=== PATIENT | male | born 1990 | race Caucasian/White ===

== ENCOUNTER 2023-12-18 10:09 | Emergency (ER) | payer MEDICAID, SELFPAY ==
[2023-12-18 10:14] VITALS: TEMP 36.7
[2023-12-18 10:23] VITALS: BP 150/98; PULSE 106; O2SAT 93
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
[2023-12-18 10:35] VITALS: RESP 25
[2023-12-18] MEDS: morphine 4 mg/mL SDV 1 mL IVP ×2 (10:35→10:54)
[2023-12-18] MEDS: tetanus-dipt-pertussis 0.5 mL SDV IM (10:35)
[2023-12-18] MEDS: ondansetron 2 mg/ML SDV 2 mL 4 MG IVP (10:35)
[2023-12-18] MEDS: LORazepam 2 mg/mL INJ 1 mL 1 MG IVP (10:53)
[2023-12-18 10:54] VITALS: RESP 25
[2023-12-18] MEDS: mupirocin oint 22 gm 1 APPLIC TOPICAL (11:21)
[2023-12-18 11:22] VITALS: RESP 23
[2023-12-18] MEDS: HYDROmorphone 1 mg/mL INJ 1 mL IVP (11:22)
[2023-12-18 11:33] VITALS: BP 129/82; PULSE 81; O2SAT 100
== END 2023-12-18 11:51 | disposition home or self-care (01) ==
PROVIDERS: Emergency Provider Physician Assistant
DX: T22.291A Burn of second degree of multiple sites of right shoulder and upper limb, except wrist and hand, initial encounter (principal); X08.8XXA Exposure to other specified smoke, fire and flames, initial encounter; Z23 Encounter for immunization
CPT/HCPCS: 90471; 90715; 96374; 96375; 99284; J1170; J2060; J2270; J2405

== ENCOUNTER 2024-03-10 01:11 | Emergency (ER) | payer MEDICAID, SELFPAY ==
[2024-03-10 01:12] VITALS: BP 119/62; PULSE 67; RESP 16; TEMP 36.6; O2SAT 95; BMI 29.5
--- NOTE | 2024-03-10 01:18 | ECG_ITS ---
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1990 Requested By: Hector Candelario Order Number: [id number] Reading MD: WENDY ARANA Measurements Intervals [place] Rate: 68 P: 41 OR: 158 QRS: 257 QRSD: 120 T: 61 QT: 418 QTc: 445 Interpretive Statements SINUS RHYTHM RIGHT AXIS DEVIATION [QRS AXIS > 100] RIGHT BUNDLE BRANCH BLOCK [120+ ms QRS DURATION, UPRIGHT V1, 40+ ms S IN I/aVL/V4/V5/V6] No previous ECG available for comparison Electronically Signed On 03-10-2024 18:55:05 BLEACHING MACHINE OPERATOR by WENDY ARANA [id number]
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
--- NOTE | 2024-03-10 01:23 | ED_ITS ---
HPI - Syncope 2 General: Chief Complaint: Syncope Stated Complaint: SYNCOPE Time Seen by Provider: 03/10/24 01:12 Source: patient and EMS Mode of arrival: EMS Limitations: no limitations History of Present Illness: 33-year-old male states that he has been drinking alcohol night states he had sat down to eat a sandwich states that while eating had some chest pain and had a syncopal event. He states that he feels improved currently denies any pain unknown for how long he had been out. He states he also had history of TIAs in the past but no focal deficits no slurred speech states that she has an MRI scheduled for Sunday. He states he is also currently wearing a heart monitor as he has had syncopal events in the past. Associated symptoms: Reports chest pain; Deny abdominal pain, fever(s), headache(s) or nausea Related Data Previous Rx's Medication Instructions Recorded hydrocodone 10 mg-acetaminophen 1 tab PO Q6H PRN pain #20 tabs 12/18/23 325 mg tablet Allergies Allergy/AdvReac Type Severity Reaction Status Date / Time No Known Allergies Allergy Verified 12/18/23 10:39 Review of Systems 2 Const: Denies: fever(s), chills, body aches or change in appetite ENMT: Denies: throat pain or dental pain Card: Reports: chest pain and syncope Resp: Denies: dyspnea GI: Denies: abdominal pain, nausea, vomiting or diarrhea Musc: Denies: neck pain or back pain Skin/Breast: Denies: rash Neuro: Denies: headache(s) Physical Exam 2 Const: COMMON NORMALS: no acute distress, patient oriented x3 and healthy appearing HENMT: COMMON NORMALS: normocephalic and atraumatic HEAD & SCALP: n ormocephalic and atraumatic Eye: COMMON NORMALS: conjunctivae normal CONJUNCTIVA: Yes conjunctivae normal Neck/C-Spine: COMMON NORMALS: full ROM and supple Chest: COMMONS NORMALS: normal inspection of the chest and normal palpation of entire chest wall Resp: COMMON NORMALS: normal respiratory effort, No retractions, No use of accessory muscles and clear to auscultation bilaterally AUSCULTATION: clear to auscultation bilaterally Cardio: COMMON NORMALS: regular rate, regular rhythm and No murmurs present (Cardio) RATE: regular rate RHYTHM: regular rhythm GI: COMMON NORMALS: Normal to inspection, nondistended, normoactive bowel sounds present, Soft to palpation, non-tender and no masses PALPATION: Yes Soft to palpation Extremity: COMMON NORMALS: normal to inspection and full ROM Neuro: COMMON NORMALS: patient oriented x3, moves all extremities and no focal motor deficits Psych: COMMON NORMALS: mental status grossly normal, Normal thought process present and cooperative THOUGHT PROCESS: Normal thought process present Skin: COMMON NORMALS: no rashes or lesions noted and no wounds GENERAL SKIN EXAM: no rashes or lesions noted Course 2 Vital Signs: Vital signs: Vital Signs Temperature 97.9 F 03/10/24 01:12 Pulse Rate 65 03/10/24 03:32 Respiratory Rate 16 03/10/24 03:32 Blood Pressure 112/78 03/10/24 03:32 Pulse Oximetry 91 03/10/24 03:32 Oxygen Delivery Me thod Room Air 03/10/24 01:12 MDM - Syncope Medical Decision Making Patient presents here after a syncopal event he has been well-appearing here head CT is normal troponins are negative he has no signs of any cardiac cause or stroke has been drinking alcohol as well could have contributed he is stable for discharge follow-up with PCP and return if worsening he understands agrees to plan. Medical Records I reviewed the patient's medical records. Lab Data I reviewed the patient's lab results. 03/10/24 01:53 03/10/24 01:53 Radiology Impressions Chest X-Ray 03/10/24 01:18 IMPRESSION: Enlarged cardiac silhouette. May reflect cardiomegaly and/or pericardial effusion. Head CT 03/10/24 01:18 IMPRESSION: No acute intracranial hemorrhage, evidence of acute territorial infarct, or mass effect. Laboratory Results WBC 7.31 10^3/uL (3.29-11.43) 03/10/24 01:53 RBC 4.87 10^6/uL (3.85-5.65) 03/10/24 01:53 Hgb 14.90 g/dL (11.27-16.99) 03/10/24 01:53 Hct 44.1 % (37-53) 03/10/24 01:53 MCV 90.6 fl (82-101) 03/10/24 01:53 MCH 30.6 pg (27-33) 03/10/24 01:53 MCHC 33.8 g/dL (30-55) 03/10/24 01:53 RDW 12.7 % (12.1-15.1) 03/10/24 01:53 Plt Count 280 10^3/cmm (157-399) 03/10/24 01:53 MPV 8.9 fL (7.4-10.4) 03/10/24 01:53 Neut % (Auto) 52.8 % 03/10/24 01:53 Lymph % (Auto) 33.9 % 03/10/24 01:53 Wood % (Auto) 7.0 % 03/10/24 01:53 Eos % (Auto) 5.1 % 03/10/24 01:53 Baso % (Auto) 1.1 % 03/10/24 01:53 Neut # (Auto) 3.86 10^3/uL (1.8-7.7) 03/10/24 01:53 Lymph # (Auto) 2.5 10^3/uL (0.8-4.8) 03/10/24 01:53 Wood # (Auto) 0.5 10^3/uL (0.2-0.9) 03/10/24 01:53 Eos # (Auto) 0.4 10^3/uL (0.0-0.8) 03/10/24 01:53 Baso # (Auto) 0.1 10^3/uL (0.0-0.1) 03/10/24 01:53 Nucleated RBC % (auto) 0 % 03/10/24 01:53 Nucleated RBCs # 0.0 /100WBC 03/10/24 01:53 D-Dimer 0.33 ug/mLFEU (0-0.59) 03/10/24 01:53 Sodium 139 mmol/L (136-145) 03/10/24 01:53 Potassium 3.8 mmol/L (3.5-5.1) 03/10/24 01:53 Chloride 100 mmol/L (98-107) 03/10/24 01:53 Carbon Dioxide 22 mmol/L (22-29) 03/10/24 01:53 Anion Gap 20.8 (5-19) H 03/10/24 01:53 BUN 12 mg/dL (6-20) 03/10/24 01:53 Creatinine 0.7 mg/dL (0.7-1.2) 03/10/24 01:53 GFR Calculation 130.7 mL/min (90-130) H 03/10/24 01:53 Glucose 96 mg/dL (65-115) 03/10/24 01:53 Calculated Osmolality 288 mOsm/kg (285-295) 03/10/24 01:53 Calcium 9.2 mg/dL (8.5-10.5) 03/10/24 01:53 Total Bilirubin 0.4 mg/dL (0.15-1.2) 03/10/24 01:53 AST 15 U/L (0-40) 03/10/24 01:53 ALT 12 U/L (0-41) 03/10/24 01:53 Alkaline Phosphatase 59 U/L (40-130) 03/10/24 01:53 Troponin T Baseline < 6 ng/L (0-15) 03/10/24 01:53 Troponin T 120 Minute 6.00 ng/L (0-15) 03/10/24 03:30 Delta Troponin T 0.13881 ABS# (0-10) 03/10/24 03:30 Total Protein 7.1 g/dL (6.6-8.7) 03/10/24 01:53 Albumin 4.6 g/dL (3.5-5.2) 03/10/24 01:53 Globulin 2.5 g/dL (1.3-4.6) 03/10/24 01:53 Ethyl Alcohol 119 mg/dL (0-10) H 03/10/24 01:53 All radiology interpretation(s) finalized by discharge EKG Data EKG 1: I personally reviewed and interpreted this EKG as follows: EKG interpretation date: 03/10/24 EKG interpretation time: 01:26 Interpretation: nsr hr [address] elevation qrs 120 qtc 435 EKG 2: I personally reviewed and interpreted this EKG as follows: EKG interpretation date: 03/10/24 EKG interpretation time: 03:20 Interpretation: [place]sr hr [address] elevation qrs 118 qtc 435 Discharge Plan Discharge Patient Disposition: Home Clinical Impression: Syncope Condition: Stable Prescriptions: No Action hydrocodone-acetaminophen 10-325 mg tablet 1 tab PO Q6H PRN (Reason: pain) Qty: 20 0RF Discharge Orders: Discharge ED (Routine); Ordered 03/10/24 Ordered By: Hector Candelario Discharge Diet: Advance as tolerated Discharge Activity: Resume usual activity Patient Instructions: Syncope (ED) Coding Level of Care Code ED Record Label Internship for Eunice Gallego
[2024-03-10 02:02] LABS: Basophils # 0.1 10^3/uL (0.0-0.1); Basophils % 1.1 %; Eosinophils # 0.4 10^3/uL (0.0-0.8); Eosinophils % 5.1 %; Hematocrit 44.1 % (37-53); Lymphocytes # 2.5 10^3/uL (0.8-4.8); Lymphocytes % 33.9 %; Mean Corpuscular HGB Conc 33.8 g/dL (30-55); Mean Corpuscular Hemoglobin 30.6 pg (27-33); Mean Corpuscular Volume 90.6 fl (82-101); Mean Platelet Volume 8.9 fL (7.4-10.4); Monocytes # 0.5 10^3/uL (0.2-0.9); Neutrophils # 3.86 10^3/uL (1.8-7.7); Neutrophils % 52.8 %; Nucleated Red Blood Cells % 0 %; Platelet Count 280 10^3/cmm (157-399); Red Blood Count 4.87 10^6/uL (3.85-5.65); Red Cell Distribution Width 12.7 % (12.1-15.1); White Blood Count 7.31 10^3/uL (3.29-11.43)
[2024-03-10 02:15] LABS: D Dimer 0.33 ug/mLFEU (0-0.59)
[2024-03-10 02:17] VITALS: BP 122/62; PULSE 71; RESP 25; O2SAT 94
[2024-03-10 02:22] LABS: Alanine Aminotransferase 12 U/L (0-41); Albumin Level 4.6 g/dL (3.5-5.2); Alcohol Level 119 mg/dL (0-10); Alkaline Phosphatase 59 U/L (40-130); Anion Gap 20.8 (5-19); Aspartate Amino Transferase 15 U/L (0-40); Blood Urea Nitrogen 12 mg/dL (6-20); Calcium 9.2 mg/dL (8.5-10.5); Carbon Dioxide 22 mmol/L (22-29); Chloride 100 mmol/L (98-107); Globulin 2.5 g/dL (1.3-4.6); Glomerular Filtration Rate 130.7 mL/min (90-130); Glucose 96 mg/dL (65-115); Osmolality Calculated 288 mOsm/kg (285-295); Potassium 3.8 mmol/L (3.5-5.1); Sodium 139 mmol/L (136-145); Total Bilirubin 0.4 mg/dL (0.15-1.2); Total Protein 7.1 g/dL (6.6-8.7); Troponin(5th) Baseline < 6 ng/L (0-15)
--- NOTE | 2024-03-10 03:18 | ECG_ITS ---
[facility]10 Pat Name: Walter Chinchilla Department: Room: Gender: Male Psychiatric Cns: : 1990 Requested By: Hector Candelario Order Number: [id number] Reading MD: WENDY ARANA Measurements Intervals [place] Rate: 74 P: 69 SC: 152 QRS: 259 QRSD: 118 T: 57 QT: 408 QTc: 453 Interpretive Statements SINUS RHYTHM POSSIBLE RIGHT VENTRICULAR HYPERTROPHY [SOME/ALL OF: PROMINENT R IN V1, LATE TRANSITION, RAD, MILI, SSS] Compared to ECG 03/10/2024 01:26:03 Right-axis deviation no longer present Right bundle-branch block no longer present Electronically Signed On 03-10-2024 19:30:01 DIESEL POWERPLANT SUPERVISOR by WENDY ARANA [id number]
[2024-03-10 03:32] VITALS: BP 112/78; PULSE 65; RESP 16; O2SAT 91
[2024-03-10 03:50] LABS: Troponin 5 2HR Delta 0.00001 ABS# (0-10)
[2024-03-10 04:16] VITALS: BP 98/69; PULSE 78; O2SAT 98
== END 2024-03-10 04:17 | disposition home or self-care (01) ==
PROVIDERS: Emergency Provider Emergency Medicine
DX: R55 Syncope and collapse (principal)
CPT/HCPCS: 36415; 70450; 71045; 80053; 80307; 84484; 85025; 85378; 93005; 99285

== ENCOUNTER 2024-06-19 12:50 | Outpatient (CLI) | payer MEDICAID, SELFPAY ==
[2024-06-19 13:06] LABS: Basophils # 0.1 10^3/uL (0.0-0.1); Basophils % 0.9 %; Eosinophils # 0.1 10^3/uL (0.0-0.8); Hematocrit 44.9 % (37-53); Lymphocytes # 1.6 10^3/uL (0.8-4.8); Lymphocytes % 22.4 %; Mean Corpuscular HGB Conc 33.4 g/dL (30-55); Mean Corpuscular Hemoglobin 30.1 pg (27-33); Mean Corpuscular Volume 90.2 fl (82-101); Mean Platelet Volume 9.2 fL (7.4-10.4); Monocytes # 0.3 10^3/uL (0.2-0.9); Monocytes % 4.3 %; Neutrophils # 4.86 10^3/uL (1.8-7.7); Neutrophils % 70.3 %; Nucleated Red Blood Cells % 0 %; Platelet Count 311 10^3/cmm (157-399); Red Blood Count 4.98 10^6/uL (3.85-5.65); Red Cell Distribution Width 12.7 % (12.1-15.1); White Blood Count 6.92 10^3/uL (3.29-11.43)
[2024-06-19 13:21] LABS: Anion Gap 12.3 (5-19); Blood Urea Nitrogen 16 mg/dL (6-20); Calcium 9.4 mg/dL (8.5-10.5); Carbon Dioxide 30 mmol/L (22-29); Chloride 102 mmol/L (98-107); Glucose 109 mg/dL (65-115); Osmolality Calculated 292 mOsm/kg (285-295); Potassium 4.3 mmol/L (3.5-5.1); Sodium 140 mmol/L (136-145)
== END 2024-06-19 12:51 | disposition home or self-care (01) ==
LOC: LAB 12:53
PROVIDERS: Visit Provider Internal Medicine
DX: Q21.10 Atrial septal defect, unspecified (principal); G45.9 Transient cerebral ischemic attack, unspecified
CPT/HCPCS: 36415; 80048; 85025

== ENCOUNTER 2024-07-02 17:21 | Emergency (ER) | payer MEDICAID, SELFPAY ==
[2024-07-02 17:27] VITALS: PULSE 83; RESP 16; TEMP 36.5; O2SAT 99; BMI 28.5
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
[2024-07-02 17:42] VITALS: BP 138/73; PULSE 85; O2SAT 98
[2024-07-02] MEDS: tetanus-dipt-pertussis 0.5 mL SDV IM (17:52)
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
[2024-07-02 18:31] LABS: Basophils # 0.1 10^3/uL (0.0-0.1); Basophils % 0.6 %; Eosinophils # 0.1 10^3/uL (0.0-0.8); Eosinophils % 0.8 %; Hematocrit 43.8 % (37-53); Lymphocytes # 1.8 10^3/uL (0.8-4.8); Lymphocytes % 17.2 %; Mean Corpuscular HGB Conc 33.8 g/dL (30-55); Mean Corpuscular Hemoglobin 29.8 pg (27-33); Mean Corpuscular Volume 88.1 fl (82-101); Mean Platelet Volume 9.4 fL (7.4-10.4); Monocytes # 0.7 10^3/uL (0.2-0.9); Monocytes % 6.4 %; Neutrophils # 7.97 10^3/uL (1.8-7.7); Neutrophils % 74.8 %; Nucleated Red Blood Cells % 0 %; Platelet Count 337 10^3/cmm (157-399); Red Blood Count 4.97 10^6/uL (3.85-5.65); Red Cell Distribution Width 12.9 % (12.1-15.1); White Blood Count 10.65 10^3/uL (3.29-11.43)
[2024-07-02 18:48] LABS: Alanine Aminotransferase 13 U/L (0-41); Alkaline Phosphatase 80 U/L (40-130); Anion Gap 22.9 (5-19); Aspartate Amino Transferase 23 U/L (0-40); Blood Urea Nitrogen 15 mg/dL (6-20); Calcium 9.8 mg/dL (8.5-10.5); Carbon Dioxide 20 mmol/L (22-29); Chloride 101 mmol/L (98-107); Creatinine Clr Calc Pharmacy 191.9983; Globulin 3.1 g/dL (1.3-4.6); Glomerular Filtration Rate 130.7 mL/min (90-130); Glucose 88 mg/dL (65-115); Osmolality Calculated 290 mOsm/kg (285-295); Potassium 3.9 mmol/L (3.5-5.1); Sodium 140 mmol/L (136-145); Total Bilirubin 1.1 mg/dL (0.15-1.2); Total Protein 8.1 g/dL (6.6-8.7)
[2024-07-02 18:53] VITALS: PULSE 87; O2SAT 96
[2024-07-02] MEDS: LORazepam 2 mg Tablet PO ×2 (19:19→21:02)
[2024-07-02 20:30] VITALS: BP 128/75; PULSE 79; O2SAT 94
[2024-07-02] MEDS: doxycycline 100 mg Tablet PO (20:49)
[2024-07-02 21:09] VITALS: BP 120/72; PULSE 87; O2SAT 96
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
== END 2024-07-02 21:11 | disposition home or self-care (01) ==
PROVIDERS: Emergency Provider Physician Assistant
DX: S91.311A Laceration without foreign body, right foot, initial encounter (principal); X58.XXXA Exposure to other specified factors, initial encounter; Z23 Encounter for immunization
CPT/HCPCS: 12002; 36415; 73630; 80053; 85025; 90471; 90715; 99284; E0114; J9999

== ENCOUNTER 2025-01-23 12:16 | Outpatient (CLI) | payer MEDICAID, SELFPAY ==
--- NOTE | 2025-01-23 12:22 | MR_ITS ---
WS: [id number] MRI RIGHT SHOULDER HISTORY: LIGAMENTOUS LAXITY OF R SHOULDER, history of prior labral surgery. COMPARISON: Radiograph 12/30/2024 TECHNIQUE: Multiplanar sequences of the shoulder joint are submitted. Mild AC joint arthritis. Osteophyte from the distal undersurface of the clavicle contacts the myotendinous portion of the supraspinatus. There is mild deformity of the supraspinatus tendon by the hypertrophic clavicular osteophyte. Minimal downsloping of the acromion and subacromial impingement. No significant amount of fluid in the subacromial bursa. Mild fluid distention of the subdeltoid bursa. No os acromion. Biceps tendon in the bicipital groove. Numerous micrometallic artifact scattered around the shoulder from prior surgery. No rotator cuff muscle atrophy or edema. No tendon tears are identified. Minimal tendinopathy in the distal subscapularis tendon. There is a small amount of tendinopathy in the supraspinatus tendon associated with the clavicular osteophyte encroachment. Marrow edema in the inferior glenoid with loss of the normal overlying cartilage and abnormal appearance of the anterior inferior labrum. There is edema in the superior lateral humeral head. MR/MR shoulder RT wo con* [id number] IMPRESSION: 1. 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 2. Hill-Sachs deformity involving the superior lateral humeral head. 3. No rotator cuff tear. 4. Mild distal clavicular osteophyte impingement upon the myotendinous portion of the supraspinatus. 5. Mild tendinopathy in the distal subscapularis and supraspinatus tendons.
== END 2025-01-23 12:17 | disposition home or self-care (01) ==
LOC: RAD 12:18
PROVIDERS: PCP Family Medicine; Visit Provider Family Medicine
DX: S43.431A Superior glenoid labrum lesion of right shoulder, initial encounter (principal); M21.821 Other specified acquired deformities of right upper arm; M25.711 Osteophyte, right shoulder; M19.011 Primary osteoarthritis, right shoulder; R93.6 Abnormal findings on diagnostic imaging of limbs; Z98.890 Other specified postprocedural states; X58.XXXA Exposure to other specified factors, initial encounter
CPT/HCPCS: 73221